=== PATIENT | male | born 2005 | race African-American/Black ===

== ENCOUNTER 2023-07-15 17:13 | Inpatient (IN) | payer OTHER ==
--- NOTE | 2023-07-15 17:25 | ED ---
Overdose HPI - General Stated Complaint: suicide attempt Time Seen by Provider: 07/15/23 17:15 Source: patient, police, EMS, RN notes reviewed - History of Present Illness Initial Comments: 18-year-old male with a history of depression apparently intensely overdosed on a combination of handfuls of Advil, Tylenol, aspirin and Bactrim. Is unclear whether this is over the past couple hours or not. Per paramedics there was several areas where the patient had vomited up what appeared to be multiple pill fragments and intact pills. He is reported to have been part of a suicide pact with a significant other who only took 1 or 2 pills for a headache supposedly. No reports of alcohol. Patient was responsive and maintained vitals per paramedics. Patient stated to me that he took these medications because he was tired of everything. MD Complaint: intentional overdose - Related Data Home Medications Medication Instructions Recorded Confirmed Cetirizine HCl [Zyrtec] 10 mg PO DIRECTED 07/15/23 07/15/23 Imipramine HCl [Tofranil] 50 mg PO DIRECTED 07/15/23 07/15/23 [place] Carbonate [[place] 300 mg PO DIRECTED 07/15/23 07/15/23 Carbonate ER] cloZAPine [Clozaril] 25 mg PO DIRECTED 07/15/23 07/15/23 guanFACINE HCL [Intuniv] 2 mg PO DIRECTED 07/15/23 07/15/23 Allergies Allergy/AdvReac Type Severity Reaction Status Date / Time acetaminophen [From Tylenol] AdvReac He becomes Verified 07/15/23 18:33 irritable & overly hyper, mean, and hurts himself amphetamine [From Adderall] AdvReac Irritable, Verified 07/15/23 18:30 overly hyper, mean, and hurts himself. codeine AdvReac Nausea & Verified 07/15/23 18:38 [From Tylenol-Codeine #3] Vomiting dextroamphetamine AdvReac Irritable, Verified 07/15/23 18:30 [From Adderall] overly hyper, mean, and hurts himself. dextromethorphan AdvReac He becomes Verified 07/15/23 18:38 [From Tylenol Cold Head irritable Congestion] & overly hyper, mean, and hurts himself diphenhydramine AdvReac He becomes Verified 07/15/23 18:38 [From Benadryl] irritable & overly hyper, mean, and hurts himself guaifenesin AdvReac He becomes Verified 07/15/23 18:38 [From Tylenol Cold Head irritable Congestion] & overly hyper, mean, and hurts himself lisdexamfetamine AdvReac rage Verified 07/15/23 18:38 [From Vyvanse] methylphenidate AdvReac Irritable, Verified 07/15/23 18:33 [From Concerta] overly hyper, mean, and hurts himself. olanzapine [From Zyprexa] AdvReac anger/irrit Verified 07/15/23 18:38 ability phenylephrine AdvReac He becomes Verified 07/15/23 18:38 [From Tylenol Cold Head irritable Congestion] & overly hyper, mean, and hurts himself risperidone AdvReac rage Verified 07/15/23 18:38 any otc cold treatment AdvReac He becomes Uncoded 07/15/23 18:38 irritable & overly hyper, mean, and hurts himself Review of Systems ROS Statement: Those systems with pertinent positive or pertinent negative responses have been documented in the HPI. ROS Other: All systems not noted in ROS Statement are negative. General Exam - General Exam Comments Initial Comments: Is a well-developed well-nourished awake alert but lethargic male with emesis on his lips. General appearance: alert, lethargic Head exam: Present: atraumatic, normocephalic, normal inspection Eye exam: Present: normal appearance, PERRL, EOMI. Absent: scleral icterus, conjunctival injection, periorbital swelling ENT exam: Present: normal exam, mucous membranes moist Neck exam: Present: normal inspection, full ROM, other (No stridor JVD or bruits). Absent: tenderness, meningismus, lymphadenopathy Respiratory exam: Present: normal lung sounds bilaterally. Absent: respiratory distress, wheezes, rales, rhonchi, stridor Cardiovascular Exam: Present: regular rate, normal rhythm, normal heart sounds. Absent: systolic murmur, diastolic murmur, rubs, gallop, clicks GI/Abdominal exam: Present: soft, normal bowel sounds. Absent: distended, tenderness, guarding, rebound, rigid, bruit, pulsatile mass Extremities exam: Present: normal inspection, full ROM, normal capillary refill. Absent: tenderness, pedal edema, joint swelling, calf tenderness Back exam: Present: normal inspection Neurological exam: Present: alert, oriented X3, CN II-XII intact Psychiatric exam: Present: normal affect, normal mood Skin exam: Present: warm, dry, intact, normal color. Absent: rash Course Vital Signs 07/15/23 17:15 Temperature 97.5 F L Medical Decision Making - Medical Decision Making I did reevaluate the patient on multiple occasions he did remain lethargic but arousable. He has vomited several times. He did demonstrate evidence of a elevated acetaminophen level of 325.8 he also demonstrated an elevated lactic acid of 5.5. No infectious processes identified this is likely due to metabolic and fluid status. I did discuss case with Jorge Wesley and Dr. Urias from ICU. Patient also had a consult to poison control with recommendations that were followed. Patient will be admitted for evaluation and treatment of Tylenol overdose and depression with suicidal attempt. He was placed on IV fluids antinausea medication close monitoring of vitals. Patient will is also on s uicide precautions. Was pt. sent in by a medical professional or institution (AZUCENA Oleary, PROFESSOR OF BI[employer]HEMISTRY, urgent care, hospital, or snf...) When possible be specific @ -No Did you speak to anyone other than the patient for history (EMS, parent, family, police, friend...)? What history was obtained from this source @ -Paramedics upon arrival Did you review nursing and triage notes (agree or disagree)? Why? @ -I reviewed and agree with nursing and triage notes Were old charts reviewed (outside hosp., previous admission, EMS record, old EKG, old radiological studies, urgent care reports/EKG's, snf records)? Report findings @ -No old charts were reviewed Differential Diagnosis (chest pain, altered mental status, abdominal pain women, abdominal pain men, vaginal bleeding, weakness, fever, dyspnea, syncope, headache, dizziness, GI bleed, back pain, seizure, CVA, palpatations, mental health, musculoskeletal)? @ -Polydrug overdose, suicidal attempt, depression EKG interpreted by me (3pts min.). @ -As above EKG interpreted by me sinus bradycardia with sinus arrhythmia rate 51 MN interval 138 QRS duration 102 QT/QTc 389/366 X-rays interpreted by me (1pt min.). @ -Chest x-ray KUB x-ray interpreted by me no acute process identified CT interpreted by me (1pt min.). @ -None done U/S interpreted by me (1pt. min.). @ -None done What testing was considered but not performed or refused? (CT, X-rays, U/S, labs)? Why? @ -None What meds were considered but not given or refused? Why? @ -None Did you discuss the management of the patient with other professionals (professionals i.e. Dr., PA, PROFESSOR OF BIOCHEMISTRY, lab, RT, psych nurse, social director, electrical line mechanic, teacher, command center officer, case liner)? Give summary @ -Jorge Lima and Dr. Kumar Was smoking cessation discussed for >3mins.? @ -No Was critical care preformed (if so, how long)? @ -45 minutes Were there social determinants of health that impacted care today? How? (Homelessness, low income, unemployed, alcoholism, drug addiction, transportation, low edu. Level, literacy, decrease access to med. care, care home, rehab)? @ -No Was there de-escalation of care discussed even if they declined (Discuss DNR or withdrawal of care, Hospice)? DNR status @ -No What co-morbidities impacted this encounter? (DM, HTN, Smoking, COPD, CAD, Cancer, CVA, ARF, Chemo, Hep., AIDS, mental health diagnosis, sleep apnea, morbid obesity)? @ -History of depression Was patient admitted / discharged? Hospital course, mention meds given and route, prescriptions, significant lab abnormalities, going to OR and other pertinent info. @ -Hospital course patient was admitted for inpatient evaluation and treatment of acetaminophen overdose dehydration vomiting and lactic acidosis IV noninfectious etiology Undiagnosed new problem with uncertain prognosis? @ -Tylenol overdose Drug Therapy requiring intensive monitoring for toxicity (Heparin, Nitro, Insulin, Cardizem)? @ -Yes, IV acetaminophen antidote Were any procedures done? @ -No Diagnosis/symptom? @ -Acute acetaminophen overdose, lactic acidosis, suicide attempt, major depression, dehydration Acute, or Chronic, or Acute on Chronic? @ -Acute Uncomplicated (without systemic symptoms) or Complicated (systemic symptoms)? @ -Default Side effects of treatment? @ -Potential Exacerbation, Progression, or Severe Exacerbation? @ -No Poses a threat to life or bodily function? How? (Chest pain, [place], [place], pneumonia, PE, COPD, DKA, ARF, appy, cholecystitis, CVA, Diverticulitis, Homicidal, Suicidal, threat to staff... and all critical care pts) @ -Potential, Tylenol overdose - Lab Data Result diagrams: 07/15/23 17:31 07/15/23 17:31 Lab Results 07/15/23 07/15/23 07/15/23 Range/Units 17:31 17:31 17:31 WBC 5.5 (4.0-11.0) k/uL RBC 5.16 (4.30-5.90) m/uL Hgb 14.3 (13.0-17.5) gm/dL Hct 45.0 (39.0-53.0) % MCV 87.2 (80.0-100.0) fL MCH 27.8 (25.0-35.0) pg MCHC 31.9 (31.0-37.0) g/dL RDW 15.8 H (11.5-15.5) % Plt Count 199 (150-450) k/uL MPV 9.2 Neutrophils % 65 % Lymphocytes % 24 % Monocytes % 6 % Eosinophils % 2 % Basophils % 1 % Neutrophils # 3.6 (1.3-7.7) k/uL Lymphocytes # 1.3 (1.0-4.8) k/uL Monocytes # 0.4 (0-1.0) k/uL Eosinophils # 0.1 (0-0.7) k/uL Basophils # 0.0 (0-0.2) k/uL Sodium 141 (137-145) mmol/L Potassium 3.8 (3.5-5.1) mmol/L Chloride 110 H (98-107) mmol/L Carbon Dioxide 19 L (22-30) mmol/L Anion Gap 12 mmol/L BUN 8 L (9-20) mg/dL Creatinine 0.83 (0.66-1.25) mg/dL Est GFR (CKD-EPI)AfAm >90 (>60 ml/min/1.73 sqM) Est GFR (CKD-EPI)NonAf >90 (>60 ml/min/1.73 sqM) Glucose 149 H (74-99) mg/dL Plasma Lactic Acid Max 5.5 H* (0.7-2.0) mmol/L Calcium 9.1 (8.4-10.2) mg/dL Total Bilirubin 0.6 (0.2-1.3) mg/dL AST 23 (17-59) U/L ALT 18 (4-49) U/L Alkaline Phosphatase 64 (38-126) U/L Creatine Kinase 169 (55-170) U/L Total Protein 6.1 L (6.3-8.2) g/dL Albumin 3.7 (3.5-5.0) g/dL Lipase 164 (23-300) U/L Salicylates <1.0 mg/dL Acetaminophen 325.8 H* ug/mL Serum Alcohol <10 mg/dL Critical Care Time Critical Care Time: Yes Total Critical Care Time: 45 Disposition Clinical Impression: Acetaminophen overdose, Suicide attempt by multiple drug overdose, Lactic acidosis, Major depression Disposition: ADMITTED IP TO THIS [facility] Condition: Serious Referrals: None,Stated [Primary Care Provider] - 1-2 days Time of Disposition: 20:50 Decision Date: 07/15/23 Decision Time: 20:50
[2023-07-15 17:58] LABS: Basophils % (A) 1 %; Eosinophils # (A) 0.1 k/uL (0-0.7); Eosinophils % (A) 2 %; HGB 14.3 gm/dL (13.0-17.5); Lymphocytes # (A) 1.3 k/uL (1.0-4.8); Lymphocytes % (A) 24 %; MCH 27.8 pg (25.0-35.0); MCHC 31.9 g/dL (31.0-37.0); MCV 87.2 fL (80.0-100.0); Mean Platelet Volume 9.2; Monocytes # (A) 0.4 k/uL (0-1.0); Monocytes % (A) 6 %; Neutrophils # (A) 3.6 k/uL (1.3-7.7); Neutrophils % (A) 65 %; Platelet Count 199 k/uL (150-450); RBC 5.16 m/uL (4.30-5.90); RDW 15.8 % (11.5-15.5); WBC 5.5 k/uL (4.0-11.0)
[2023-07-15 18:13] LABS: ALT 18 U/L (4-49); AST 23 U/L (17-59); African American GFR (CKD) >90 (>60 ml/min/1.73 sqM); Albumin 3.7 g/dL (3.5-5.0); Alcohol <10 mg/dL; Alkaline Phosphatase 64 U/L (38-126); Anion Gap 12 mmol/L; Blood Urea Nitrogen 8 mg/dL (9-20); Calcium 9.1 mg/dL (8.4-10.2); Carbon Dioxide 19 mmol/L (22-30); Chloride 110 mmol/L (98-107); Creatine Kinase 169 U/L (55-170); Glucose 149 mg/dL (74-99); Lipase 164 U/L (23-300); Non-African American GFR(CKD) >90 (>60 ml/min/1.73 sqM); Potassium 3.8 mmol/L (3.5-5.1); Salicylate <1.0 mg/dL; Sodium 141 mmol/L (137-145); Total Bilirubin 0.6 mg/dL (0.2-1.3); Total Protein 6.1 g/dL (6.3-8.2)
[2023-07-15 18:38] LABS: Acetaminophen 325.8 ug/mL
[2023-07-15] MEDS ORDERED: diphenhydrAMINE 50 MG/ML 1 ML VIAL IVP PRN (18:44)
[2023-07-15] MEDS: SODIUM CHLORIDE 0.9% 1,000 ML IV STA ×2 (19:02→20:40)
--- NOTE | 2023-07-15 19:11 | XR ---
EXAMINATION TYPE: XR KUB portable DATE OF EXAM: 07/15/2023 6:06 PM CLINICAL INDICATION:Male, 18 years old with history of Drug overdose with vomiting; [facility] COMPARISON: None. TECHNIQUE: Supine radiographic view/s of the abdomen/pelvis obtained. FINDINGS: The bowel gas pattern is nonspecific, likely nonobstructive without dilated loops of small or large b owel. Small amount fecal material and gas are demonstrated throughout the colon and rectum. No gross evidence of organomegaly. No evidence of pneumoperitoneum in the limitations of supine technique. No pathologic calcifications are seen. Osseous structures appear grossly intact. IMPRESSION: Nonobstructive bowel gas pattern.
[2023-07-15] MEDS: SODIUM CHLORIDE 0.9% 500 ML 500 ML IV STA (19:31)
--- NOTE | 2023-07-15 19:34 | XR ---
EXAM: XR chest 1V portable CLINICAL INDICATION:Male, 18 years old with history of Drug overdose with vomiting; [facility] COMPARISON: None. TECHNIQUE: Chest single view. FINDINGS: Lines/tubes/devices: EKG leads overlie the chest. No indwelling lines are seen. Cardiomediastinum: Cardiac silhouette appears normal in size. Unremarkable mediastinal silhouette. Vasculature: No increased pulmonary vasculature. Lungs/pleura: No consolidation, sizeable effusion, or visible pneumothorax. Bones/soft tissues: Bony thorax appears grossly intact as seen. Regional soft tissues appear unremarkable. IMPRESSION: No acute cardiopulmonary findings.
[2023-07-15] MEDS ORDERED: ACETYLCYSTEINE IV 200 MG/ML 30 ML VIAL IV ONE (19:49)
[2023-07-15] MEDS: ACETYLCYSTEINE IV ONE ×3 (19:49→22:06)
[2023-07-15] MEDS: DEXTROSE 5% IV ONE ×3 (19:49→22:06)
[2023-07-15] MEDS ORDERED: DEXTROSE 5% IN WATER 250 ML BAG ONE (19:49)
[2023-07-15] MEDS: WATER IV ONE ×3 (19:49→22:06)
[2023-07-15 20:52] LABS: Amphetamine Screen,Urine Not Detected (NotDetected); Barbiturate Screen,Urine Not Detected (NotDetected); Benzodiazepines Screen,Urine Not Detected (NotDetected); Cocaine Screen,Urine Not Detected (NotDetected); Methadone Screen, Urine Not Detected (NotDetected); Opiate Screen,Urine Not Detected (NotDetected); Oxycodone Screen, Urine Not Detected (NotDetected); Phencyclidine Screen,Urine Not Detected (NotDetected); Tricyclic Antidepressant,Urine Not Detected (NotDetected); Urn Cannabinoid Scrn Detected (NotDetected)
[2023-07-15] MEDS ORDERED: NALOXONE 0.4 MG/ML 1 ML VIAL IV PRN (20:52)
[2023-07-15 20:54] LABS: Salicylate <1.0 mg/dL
[2023-07-15 21:09] LABS: Acetaminophen 241.3 ug/mL
[2023-07-15] MEDS: ONDANSETRON 4 MG/2 ML VIAL IVP STA (22:01)
[2023-07-15 23:05] LABS: Basophils % (A) 0 %; Eosinophils # (A) 0.1 k/uL (0-0.7); Eosinophils % (A) 1 %; HCT 46.6 % (39.0-53.0); HGB 14.6 gm/dL (13.0-17.5); Lymphocytes # (A) 0.9 k/uL (1.0-4.8); Lymphocytes % (A) 10 %; MCH 27.4 pg (25.0-35.0); MCHC 31.3 g/dL (31.0-37.0); MCV 87.5 fL (80.0-100.0); Mean Platelet Volume 9.1; Monocytes # (A) 0.5 k/uL (0-1.0); Monocytes % (A) 5 %; Neutrophils % (A) 84 %; Platelet Count 203 k/uL (150-450); RBC 5.33 m/uL (4.30-5.90); RDW 15.7 % (11.5-15.5); WBC 9.5 k/uL (4.0-11.0)
[2023-07-15] MEDS ORDERED: WATER IV ONE (23:44)
[2023-07-15] MEDS ORDERED: ACETYLCYSTEINE IV ONE (23:44)
[2023-07-15] MEDS ORDERED: DEXTROSE 5% IV ONE (23:44)
[2023-07-16 00:51] LABS: Potassium 4.4 mmol/L (3.5-5.1)
[2023-07-16 02:57] LABS: ALT 17 U/L (4-49); African American GFR (CKD) >90 (>60 ml/min/1.73 sqM); Albumin 3.4 g/dL (3.5-5.0); Anion Gap 7 mmol/L; Blood Urea Nitrogen 6 mg/dL (9-20); Calcium 8.8 mg/dL (8.4-10.2); Carbon Dioxide 21 mmol/L (22-30); Chloride 112 mmol/L (98-107); Glucose 101 mg/dL (74-99); Non-African American GFR(CKD) >90 (>60 ml/min/1.73 sqM); Sodium 140 mmol/L (137-145); Total Bilirubin 1.1 mg/dL (0.2-1.3)
[2023-07-16 03:16] LABS: AST 28 U/L (17-59); Alkaline Phosphatase <20 U/L (38-126); Potassium 5.4 mmol/L (3.5-5.1)
[2023-07-16 07:42] LABS: ALT 15 U/L (4-49); AST 18 U/L (17-59); Acetaminophen 39.7 ug/mL; African American GFR (CKD) >90 (>60 ml/min/1.73 sqM); Albumin 3.2 g/dL (3.5-5.0); Alkaline Phosphatase 27 U/L (38-126); Anion Gap 7 mmol/L; Blood Urea Nitrogen 6 mg/dL (9-20); Carbon Dioxide 22 mmol/L (22-30); Chloride 112 mmol/L (98-107); Glucose 91 mg/dL (74-99); Non-African American GFR(CKD) >90 (>60 ml/min/1.73 sqM); Potassium 3.8 mmol/L (3.5-5.1); Sodium 141 mmol/L (137-145); Total Bilirubin 0.8 mg/dL (0.2-1.3); Total Protein 5.5 g/dL (6.3-8.2)
[2023-07-16 07:50] LABS: NT-Pro-B-Type Natriuretic Pept 300 pg/mL
[2023-07-16] MEDS ORDERED: ONDANSETRON 4 MG/2 ML VIAL IVP PRN (08:33)
[2023-07-16] MEDS: SODIUM CHLORIDE 0.9% 1,000 ML IV SCH (10:34)
--- NOTE | 2023-07-16 11:36 | P.HPIM ---
History of Present Illness H&P Date: 07/16/23 Chief Complaint: Suicide attempt * 18-year-old patient with past medical history significant for depression, who presents to the emergency department with suicide attempt, patient take a combination of Tylenol, aspirin, Bactrim and Advil. Time of ingestion unknown. Per paramedics patient had several spots where patient had vomited and they were multiple pill fragments and intact pills noted. At the time of presentation when seen by paramedics patient has been responsive and hemodynamically stable. Patient spoke with the hospitality manager mentioning that he took these pills but he was tired of everything and had an intentional overdose. Patient presented to [facility] and was evaluated in emergency department on multiple occasions patient was noted to be lethargic however arousable. Patient had multiple episodes of vomiting. Was noted to have elevated acetaminophen levels of 325.8. Lactic acid of 5.5 was noted at the time of presentation. No infectious etiology was noted. Medical ICU team was contacted and poison control was consulted. Patient will be treated for Tylenol overdose as well as depression and suicide attempt. Patient was started on IV fluids. Was placed in suicide precautions. Liver profile acetaminophen levels ordered. * Poison control was called and patient was started on protocol single bag dosing. Patient was given N-acetylcysteine pharmacy following up, follow-up acetaminophen levels and liver profile ordered * Further workup in ER included a chest x-ray that was within normal limit * EKG obtained showed sinus rhythm bradycardia noted QTc 367 * Workup include WBC 9.5 hemoglobin 14.6 platelet count of 203. Serum chemistry showed sodium 143 potassium 4.4 chloride 113, dioxide 19 BUN 8 creatinine 0.83, follow-up lactate 0.9. REVIEW OF SYSTEMS: Depression, suicidal ideation CONSTITUTIONAL: No fever, no malaise, no fatigue. HEENT: No recent visual problems or hearing problems. Denied any sore throat. CARDIOVASCULAR: No chest pain, orthopnea, PND, no palpitations, no syncope. PULMONARY: No shortness of breath, no cough, no hemoptysis. GASTROINTESTINAL: No diarrhea, no nausea, no vomiting, no abdominal pain. NEUROLOGICAL: No headaches, no weakness, no numbness. HEMATOLOGICAL: Denies any bleeding or petechiae. GENITOURINARY: Denies any burning micturition, frequency, or urgency. MUSCULOSKELETAL/RHEUMATOLOGICAL: Denies any joint pain, swelling, or any muscle pain. ENDOCRINE: Denies any polyuria or polydipsia. PHYSICAL EXAMINATION: GENERAL: The patient is alert and oriented x3, HEENT: Pupils are round and equally reacting to light. EOMI. CARDIOVASCULAR: S1 and S2 present. No murmurs, rubs, or gallops. PULMONARY: Chest is clear to auscultation, no wheezing or crackles. ABDOMEN: Soft, nontender, nondistended, normoactive bowel sounds. No palpable organomegaly. MUSCULOSKELETAL: No joint swelling or deformity. EXTREMITIES: No cyanosis, clubbing, or pedal edema. NEUROLOGICAL: Gross neurological examination did not reveal any focal deficits. SKIN: No rashes. Assessment and plan * Suicide attempt with overdose on acetaminophen * Acetaminophen toxicity * History of depression * Lactate acidosis noninfectious * Consultation obtained from medical ICU, patient started on single bag of acetylcysteine protocol per poison control * Follow-up on acetaminophen levels, follow-up on liver profile, follow-up on CBC * In regards to depression continue to maintain maximum safety precautions psychiatry consulted continue to maintain one-to-one sitter * In regards to lactic acidosis follow-up lactate levels within normal limits * CODE STATUS full code Past Medical History Additional Past Medical History / Comment(s): depression Medications and Allergies Home Medications Medication Instructions Recorded Confirmed Type Cetirizine HCl [Zyrtec] 10 mg PO DIRECTED 07/15/23 07/15/23 History Imipramine HCl [Tofranil] 50 mg PO DIRECTED 07/15/23 07/15/23 History [place] Carbonate [[place] 300 mg PO DIRECTED 07/15/23 07/15/23 History Carbonate ER] cloZAPine [Clozaril] 25 mg PO DIRECTED 07/15/23 07/15/23 History guanFACINE HCL [Intuniv] 2 mg PO DIRECTED 07/15/23 07/15/23 History Allergies Allergy/AdvReac Type Severity Reaction Status Date / Time acetaminophen [From Tylenol] AdvReac He becomes Verified 07/15/23 18:33 irritable & overly hyper, mean, and hurts himself amphetamine [From Adderall] AdvReac Irritable, Verified 07/15/23 18:30 overly hyper, mean, and hurts himself. codeine AdvReac Nausea & Verified 07/15/23 18:38 [From Tylenol-Codeine #3] Vomiting dextroamphetamine AdvReac Irritable, Verified 07/15/23 18:30 [From Adderall] overly hyper, mean, and hurts himself. dextromethorphan AdvReac He becomes Verified 07/15/23 18:38 [From Tylenol Cold Head irritable Congestion] & overly hyper, mean, and hurts himself diphenhydramine AdvReac He becomes Verified 07/15/23 18:38 [From Benadryl] irritable & overly hyper, mean, and hurts himself guaifenesin AdvReac He becomes Verified 07/15/23 18:38 [From Tylenol Cold Head irritable Congestion] & overly hyper, mean, and hurts himself lisdexamfetamine AdvReac rage Verified 07/15/23 18:38 [From Vyvanse] methylphenidate AdvReac Irritable, Verified 07/15/23 18:33 [From Concerta] overly hyper, mean, and hurts himself. olanzapine [From Zyprexa] AdvReac anger/irrit Verified 07/15/23 18:38 ability phenylephrine AdvReac He becomes Verified 07/15/23 18:38 [From Tylenol Cold Head irritable Congestion] & overly hyper, mean, and hurts himself risperidone AdvReac rage Verified 07/15/23 18:38 any otc cold treatment AdvReac He becomes Uncoded 07/15/23 18:38 irritable & overly hyper, mean, and hurts himself Physical Exam Vitals: Vital Signs Temp Pulse Resp BP Pulse Ox 07/16/23 07:29 98.3 F 44 L 18 118/68 100 07/16/23 06:00 50 L 18 118/65 99 07/16/23 05:00 46 L 18 108/67 99 07/16/23 04:00 46 L 18 108/60 99 07/16/23 03:00 54 L 18 102/68 99 07/16/23 01:00 56 L 18 103/65 97 07/15/23 22:00 84 18 107/67 100 07/15/23 21:00 68 18 96/50 100 07/15/23 20:30 89 12 113/74 97 07/15/23 20:00 77 20 103/90 99 07/15/23 19:30 60 14 98/62 99 07/15/23 17:15 97.5 F L Intake and Output 07/15/23 07/16/23 07/16/23 22:59 06:59 14:59 Output Total 400 Balance -400 Output: Urine 400 Other: Weight 95.254 kg Results CBC & Chem 7: 07/15/23 22:46 07/16/23 06:59 Labs: Abnormal Lab Results - Last 24 Hours (Table) 07/15/23 07/15/23 07/15/23 Range/Units 17:31 17:31 17:31 RDW 15.8 H (11.5-15.5) % Neutrophils # (1.3-7.7) k/uL Lymphocytes # (1.0-4.8) k/uL Potassium (3.5-5.1) mmol/L Chloride 110 H (98-107) mmol/L Carbon Dioxide 19 L (22-30) mmol/L BUN 8 L (9-20) mg/dL Creatinine (0.66-1.25) mg/dL Glucose 149 H (74-99) mg/dL Plasma Lactic Acid Max 5.5 H* (0.7-2.0) mmol/L Alkaline Phosphatase (38-126) U/L Total Protein 6.1 L (6.3-8.2) g/dL Albumin (3.5-5.0) g/dL Acetaminophen 325.8 H* ug/mL U Marijuana (THC) Screen (NotDetected) 07/15/23 07/15/23 07/15/23 Range/Units 17:31 20:03 20:03 RDW (11.5-15.5) % Neutrophils # (1.3-7.7) k/uL Lymphocytes # (1.0-4.8) k/uL Potassium (3.5-5.1) mmol/L Chloride 113 H (98-107) mmol/L Carbon Dioxide 19 L (22-30) mmol/L BUN (9-20) mg/dL Creatinine (0.66-1.25) mg/dL Glucose (74-99) mg/dL Plasma Lactic Acid Max (0.7-2.0) mmol/L Alkaline Phosphatase (38-126) U/L Total Protein (6.3-8.2) g/dL Albumin (3.5-5.0) g/dL Acetaminophen 241.3 H* ug/mL U Marijuana (THC) Screen Detected H (NotDetected) 07/15/23 07/15/23 07/16/23 Range/Units 21:24 22:46 02:25 RDW 15.7 H (11.5-15.5) % Neutrophils # 8.0 H (1.3-7.7) k/uL Lymphocytes # 0.9 L (1.0-4.8) k/uL Potassium 5.4 H (3.5-5.1) mmol/L Chloride 112 H (98-107) mmol/L Carbon Dioxide 21 L (22-30) mmol/L BUN 6 L (9-20) mg/dL Creatinine 0.60 L (0.66-1.25) mg/dL Glucose 101 H (74-99) mg/dL Plasma Lactic Acid Max 2.5 H* (0.7-2.0) mmol/L Alkaline Phosphatase <20 L (38-126) U/L Total Protein 6.0 L (6.3-8.2) g/dL Albumin 3.4 L (3.5-5.0) g/dL Acetaminophen ug/mL U Marijuana (THC) Screen (NotDetected) 07/16/23 Range/Units 06:59 RDW (11.5-15.5) % Neutrophils # (1.3-7.7) k/uL Lymphocytes # (1.0-4.8) k/uL Potassium (3.5-5.1) mmol/L Chloride 112 H (98-107) mmol/L Carbon Dioxide (22-30) mmol/L BUN 6 L (9-20) mg/dL Creatinine (0.66-1.25) mg/dL Glucose (74-99) mg/dL Plasma Lactic Acid Max (0.7-2.0) mmol/L Alkaline Phosphatase 27 L (38-126) U/L Total Protein 5.5 L (6.3-8.2) g/dL Albumin 3.2 L (3.5-5.0) g/dL Acetaminophen ug/mL U Marijuana (THC) Screen (NotDetected)
--- NOTE | 2023-07-16 16:24 | P.CNPUL ---
History of Present Illness Consult date: 07/16/23 Requesting physician: Noe Cooper Reason for consult: other Chief complaint: Suicide attempt, Tylenol overdose History of present illness: This is a 18-year-old male known history of depression, previous history of suicidal attempts, patient took yesterday a combination of pills including Tyle nol, aspirin, Bactrim, and Advil. Time of ingestion is unknown, but apparently shortly after he took those pills, patient vomited, and according to paramedics there was multiple pill fragments noted as he was vomiting. Patient was brought into the ER, and I was notified about this patient by Dr. Mitesh Arrington, discussed the case over the phone with Dr. Arrington, and I recommended that the patient starts on acetylcysteine as per protocol/IV protocol. And I also recommended poison control to be notified and address any other recommendations. Patient was placed on the acetylcysteine protocol intravenously, labs came back showing significantly elevated toxic level of acetaminophen 325, follow-up level was 241 and a level this morning was down to 39.7 patient is on blood protocol and he will continue to receive acetylcysteine for the next 16 hours liver enzymes were noted to be normal renal profile was normal further drug screening on this patient showed a level of salicylate less than 1.0 he tested negative for alcohol, and he was positive for marijuana. At any rate I saw this patient in the ER this morning, and he seems to be doing well. Reviewed all his labs reviewed the acetylcysteine protocol, and the patient is on the protocol as it should be. Hence I am recommending that the patient should go to the medical floor with psychiatric consultation and sitter at bedside, suicidal precautions, continue the acetylcysteine infusion for the next 16 hours, and the patient should be seen by psychiatry on consultation and he may need to be admitted to psychiatry. Review of Systems REVIEW OF SYSTEMS: CONSTITUTIONAL: Negative. EYES: Negative. ENT: Negative. CARDIAC: Negative. PULMONARY: No cough no wheezing no shortness GI: Negative. GENITOURINARY: Negative. MUSCULOSKELETAL: Negative. SKIN: Negative. NEUROPSYCH: History of depression and previous suicidal attempt ENDOCRINE: Negative. HEMATOLOGIC: Negative. Past Medical History Additional Past Medical History / Comment(s): depression History of Any Multi-Drug Resistant Organisms: None Reported Past Surgical History: Orthopedic Surgery Additional Past Surgical History / Comment(s): Bilateral ankle fractures Past Anesthesia/Blood Transfusion Reactions: No Reported Reaction Past Psychological History: Depression Smoking Status: Current every day smoker, Vaper - Past Family History Mother Family Medical History: Unable to Obtain Medications and Allergies Home Medications Medication Instructions Recorded Confirmed Type Cetirizine HCl [Zyrtec] 10 mg PO DIRECTED 07/15/23 07/15/23 History Imipramine HCl [Tofranil] 50 mg PO DIRECTED 07/15/23 07/15/23 History [place] Carbonate [[place] 300 mg PO DIRECTED 07/15/23 07/15/23 History Carbonate ER] cloZAPine [Clozaril] 25 mg PO DIRECTED 07/15/23 07/15/23 History guanFACINE HCL [Intuniv] 2 mg PO DIRECTED 07/15/23 07/15/23 History Allergies Allergy/AdvReac Type Severity Reaction Status Date / Time acetaminophen [From Tylenol] AdvReac He becomes Verified 07/15/23 18:33 irritable & overly hyper, mean, and hurts himself amphetamine [From Adderall] AdvReac Irritable, Verified 07/15/23 18:30 overly hyper, mean, and hurts himself. codeine AdvReac Nausea & Verified 07/15/23 18:38 [From Tylenol-Codeine #3] Vomiting dextroamphetamine AdvReac Irritable, Verified 07/15/23 18:30 [From Adderall] overly hyper, mean, and hurts himself. dextromethorphan AdvReac He becomes Verified 07/15/23 18:38 [From Tylenol Cold Head irritable Congestion] & overly hyper, mean, and hurts himself diphenhydramine AdvReac He becomes Verified 07/15/23 18:38 [From Benadryl] irritable & overly hyper, mean, and hurts himself guaifenesin AdvReac He becomes Verified 07/15/23 18:38 [From Tylenol Cold Head irritable Congestion] & overly hyper, mean, and hurts himself lisdexamfetamine AdvReac rage Verified 07/15/23 18:38 [From Vyvanse] methylphenidate AdvReac Irritable, Verified 07/15/23 18:33 [From Concerta] overly hyper, mean, and hurts himself. olanzapine [From Zyprexa] AdvReac anger/irrit Verified 07/15/23 18:38 ability phenylephrine AdvReac He becomes Verified 07/15/23 18:38 [From Tylenol Cold Head irritable Congestion] & overly hyper, mean, and hurts himself risperidone AdvReac rage Verified 07/15/23 18:38 any otc cold treatment AdvReac He becomes Uncoded 07/15/23 18:38 irritable & overly hyper, mean, and hurts himself Physical Exam Vitals: Vital Signs Temp Pulse Resp BP Pulse Ox 07/16/23 15:00 57 L 18 127/58 97 07/16/23 13:00 61 18 121/90 97 07/16/23 12:00 60 18 96 07/16/23 11:00 65 18 118/96 96 07/16/23 10:00 45 L 18 120/71 97 07/16/23 09:00 50 L 18 124/73 98 07/16/23 08:00 48 L 18 109/61 98 07/16/23 07:29 98.3 F 44 L 18 118/68 100 07/16/23 06:00 50 L 18 118/65 99 07/16/23 05:00 46 L 18 108/67 99 07/16/23 04:00 46 L 18 108/60 99 07/16/23 03:00 54 L 18 102/68 99 07/16/23 01:00 56 L 18 103/65 97 07/15/23 22:00 84 18 107/67 100 07/15/23 21:00 68 18 96/50 100 07/15/23 20:30 89 12 113/74 97 07/15/23 20:00 77 20 103/90 99 07/15/23 19:30 60 14 98/62 99 07/15/23 17:15 97.5 F L GENERAL: Reveals 18-year-old male in no distress on room air HEENT: PERRLA, EOMI, nonicteric, no neck masses no JVD no stridor CARDIOVASCULAR: Normal S1-S2, no S3 gallop PULMONARY: Clear throughout no crackles rhonchi or wheezes ABDOMEN: Soft nontender no megaly no rebound no megaly ly. MUSCULOSKELETAL: No deformities and no limitation range of motion EXTREMITIES: No clubbing edema or cyanosis NEUROLOGICAL: Alert oriented x 3 no gross focal deficit Psychiatric: Normal mood affect normal mental status examination Skin: No rash Results - Laboratory Findings CBC and BMP: 07/15/23 22:46 07/16/23 06:59 Abnormal lab findings: Abnormal Labs 07/15/23 07/15/23 07/15/23 17:31 17:31 17:31 RDW 15.8 H Neutrophils # Lymphocytes # Potassium Chloride 110 H Carbon Dioxide 19 L BUN 8 L Creatinine Glucose 149 H Plasma Lactic Acid Max 5.5 H* Alkaline Phosphatase Total Protein 6.1 L Albumin Acetaminophen 325.8 H* U Marijuana (THC) Screen 07/15/23 07/15/23 07/15/23 17:31 20:03 20:03 RDW Neutrophils # Lymphocytes # Potassium Chloride 113 H Carbon Dioxide 19 L BUN Creatinine Glucose Plasma Lactic Acid Max Alkaline Phosphatase Total Protein Albumin Acetaminophen 241.3 H* U Marijuana (THC) Screen Detected H 07/15/23 07/15/23 07/16/23 21:24 22:46 02:25 RDW 15.7 H Neutrophils # 8.0 H Lymphocytes # 0.9 L Potassium 5.4 H Chloride 112 H Carbon Dioxide 21 L BUN 6 L Creatinine 0.60 L Glucose 101 H Plasma Lactic Acid Max 2.5 H* Alkaline Phosphatase <20 L Total Protein 6.0 L Albumin 3.4 L Acetaminophen U Marijuana (THC) Screen 07/16/23 06:59 RDW Neutrophils # Lymphocytes # Potassium Chloride 112 H Carbon Dioxide BUN 6 L Creatinine Glucose Plasma Lactic Acid Max Alkaline Phosphatase 27 L Total Protein 5.5 L Albumin 3.2 L Acetaminophen U Marijuana (THC) Screen - Diagnostic Findings Chest x-ray: image reviewed (Chest x-ray showed no evidence of active disease) Assessment and Plan Assessment: Impression: Acute acetaminophen toxicity Suicidal attempt with overdose on acetaminophen History of depression Recommendation: Patient could be sent from the ER to medical surgical floor Continue acetylcysteine infusion as per protocol Repeat labs in the next 16 hours including acetaminophen level and complete metabolic profile Psychiatry to see the patient on consultation Suicidal precautions Sitter at bedside at all times Will continue to follow Time with Patient: Greater than 30
[2023-07-16 19:05] LABS: ALT 14 U/L (4-49); AST 16 U/L (17-59); Acetaminophen <10.0 ug/mL; African American GFR (CKD) >90 (>60 ml/min/1.73 sqM); Albumin 3.2 g/dL (3.5-5.0); Alkaline Phosphatase 38 U/L (38-126); Anion Gap 4 mmol/L; Blood Urea Nitrogen 6 mg/dL (9-20); Calcium 8.9 mg/dL (8.4-10.2); Carbon Dioxide 26 mmol/L (22-30); Chloride 111 mmol/L (98-107); Glucose 66 mg/dL (74-99); Non-African American GFR(CKD) >90 (>60 ml/min/1.73 sqM); Potassium 3.7 mmol/L (3.5-5.1); Sodium 141 mmol/L (137-145); Total Bilirubin 0.4 mg/dL (0.2-1.3); Total Protein 5.4 g/dL (6.3-8.2)
[2023-07-16 19:12] LABS: NT-Pro-B-Type Natriuretic Pept 138 pg/mL
[2023-07-16 19:29] LABS: INR 1.4 (<1.2); Prothrombin Time 14.2 sec (10.0-12.5)
[2023-07-16 19:51] LABS: ALT 14 U/L (4-49); AST 17 U/L (17-59)
[2023-07-16 23:40] VITALS: RESP 16
[2023-07-17 09:23] LABS: Basophils % (A) 0 %; Eosinophils # (A) 0.1 k/uL (0-0.7); Eosinophils % (A) 2 %; HCT 43.4 % (39.0-53.0); HGB 13.7 gm/dL (13.0-17.5); Lymphocytes % (A) 37 %; MCH 27.5 pg (25.0-35.0); MCHC 31.7 g/dL (31.0-37.0); MCV 86.6 fL (80.0-100.0); Mean Platelet Volume 9.1; Monocytes # (A) 0.5 k/uL (0-1.0); Monocytes % (A) 9 %; Neutrophils # (A) 2.7 k/uL (1.3-7.7); Neutrophils % (A) 50 %; Platelet Count 160 k/uL (150-450); RBC 5.01 m/uL (4.30-5.90); RDW 15.9 % (11.5-15.5); WBC 5.4 k/uL (4.0-11.0)
[2023-07-17] MEDS: ENOXAPARIN 40 MG/0.4 ML SYRINGE SQ SCH (09:27)
[2023-07-17 09:48] LABS: ALT 16 U/L (4-49); AST 21 U/L (17-59); African American GFR (CKD) >90 (>60 ml/min/1.73 sqM); Alkaline Phosphatase 44 U/L (38-126); Anion Gap -3 mmol/L; Blood Urea Nitrogen 4 mg/dL (9-20); Calcium 9.1 mg/dL (8.4-10.2); Carbon Dioxide 31 mmol/L (22-30); Chloride 113 mmol/L (98-107); Glucose 89 mg/dL (74-99); Non-African American GFR(CKD) >90 (>60 ml/min/1.73 sqM); Potassium 4.2 mmol/L (3.5-5.1); Sodium 141 mmol/L (137-145); Total Bilirubin 0.9 mg/dL (0.2-1.3); Total Protein 5.2 g/dL (6.3-8.2)
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
[2023-07-17 15:53] VITALS: BP 105/57; PULSE 51; TEMP 97.8
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
== END 2023-07-17 20:38 | DRG 817 ==
LOC: EC 17:13 → 2SICU 18:44 → 3SCARD 07-16 10:19 → 5NMEDONC 07-16 13:37 → 3SCARD 07-16 19:35
PROVIDERS: ADMIT Hospitalist; ATTEND Hospitalist
DX: T39.1X2A Poisoning by 4-Aminophenol derivatives, intentional self-harm, initial encounter (principal); E86.0 Dehydration; F32.9 Major depressive disorder, single episode, unspecified; F43.10 Post-traumatic stress disorder, unspecified; R00.1 Bradycardia, unspecified; F90.9 Attention-deficit hyperactivity disorder, unspecified type; Z59.01 Sheltered homelessness; F17.290 Nicotine dependence, other tobacco product, uncomplicated; Z88.6 Allergy status to analgesic agent; Z88.5 Allergy status to narcotic agent; Z88.8 Allergy status to other drugs, medicaments and biological substances
CPT/HCPCS: 36415; 71045; 74018; 80051; 80053; 80143; 80179; 80306; 80320; 82075; 82550; 83605; 83690; 83880; 84450; 84460; 85025; 85610; 87635; 93005; 96361; 96365; 96366; 96375; 99291

== ENCOUNTER 2023-07-17 18:02 | Inpatient (IN) | payer MEDICAID ==
[2023-07-17] MEDS ORDERED: IBUPROFEN 600 MG TAB PO PRN (19:40)
[2023-07-17] MEDS ORDERED: LORazepam 2 MG/ML INJ IM PRN (19:40)
[2023-07-17] MEDS ORDERED: MAG HYDROX/AL HYDROX/SIMETH 355 ML BOTTLE PO PRN (19:40)
[2023-07-17] MEDS ORDERED: MAGNESIUM HYDROXIDE 2,400 MG/30 ML CUP PO PRN (19:40)
[2023-07-17] MEDS ORDERED: traZODone HCL 50 MG TAB PO PRN (19:50)
[2023-07-18] MEDS: NICOTINE 14MG/24HR PATCH TRANSDERM SCH (08:27)
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
[2023-07-19] MEDS: LITHIUM CARBONATE 300 MG CAP PO SCH (21:01)
[2023-07-19] MEDS: IMIPRAMINE 25 MG TAB PO SCH (21:01)
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
[2023-07-20] MEDS: LORazepam 1 MG TAB PO PRN (08:43)
--- NOTE | 2023-07-20 20:32 | P.PN ---
Progress Note - Text Progress Note Date: 07/20/23 In-Patient Follow-up Chief Complaint: I am doing fine Subjective: The patient noted that he has been doing fine. He still feels depressed and anxious due his circumstances. The patient reported attending all the groups. He has been compliant with his medication. He reported attending all the hernandez activities. The staff noted that the patients girlfriend stated the [place] makes patient agitated. The has got two doses of Li. Discussed with patient about medications. Explained alternate medications. The patient seems agreeable. He is going to give me the names of the medications he has taken in the past. On previous occasion, the patient did not remember any medications and avoided answering the question. Discussed ID work rehab program and adult education. Patient seemed very interested in ID work rehab program after discharge. Leading questions: The patient admitted to Depression and Anxiety. Denied SI or HI. Denied symptoms consistent with psychosis Sleep and Appetite: fair. Interim History: Behavioral Changes: None. PRN meds/isolation/restraints/ change in status: None. Change in medical condition: No change. Change in medications: No change. Side effects from Medications: None. Objective- MSE: Alert and attentive. Orientation times three. Dressed and Groomed: Appropriately. Pleasant and cooperative. Psychomotor Activity: Normal. Speech: Normal in tone, quality, and quantity. Mood: depressed and Anxious. Affect: consistent with mood. SI or HI: None. Perceptual disturbance: None. Thought Content: No paranoia or other delusional thinking noted. Thought Process: Normal. Cognition: Intact Judgment and Insight: Good AIMS: Normal. Labs: No new labs Diagnosis: No change Plan and recommendation: Continue current Medications. Monitor MS and side effects of medications and adjust medications accordingly. Provide supportive psychotherapy. The patient provided psychoeducation. The patient provided Substance abuse counseling. The patient to continue attending the hernandez activities Medication Consent with explanation of risk/benefits and side effects: Explained and obtained.
--- NOTE | 2023-07-21 16:20 | P.PN ---
Progress Note - Text Progress Note Date: 07/21/23 In-Patient Follow-up Chief Complaint: I am doing fine Subjective: The patient noted that he has been doing fine. He still feels depressed and anxious due to his circumstances. The patient reported attending all the groups. He has been compliant with his medication. He reported attending all the hernandez activities. Explained alternate medications. The patient seems agreeable. The was unable to obtain his medical information from his girlfriend. He has a folder at home. The patient will be started on Zoloft 25 mg daily. Leading questions: The patient admitted to Depression and Anxiety. Denied SI or HI. Denied symptoms consistent with psychosis Sleep and Appetite: fair Interim History: Behavioral Changes: None. PRN meds/isolation/restraints/ change in status: None. Change in medical condition: No change. Change in medications: No change. Side effects from Medications: None. Objective- MSE: Alert and attentive. Orientation times three. Dressed and Groomed: Appropriately. Pleasant and cooperative. Psychomotor Activity: Normal. Speech: Normal in tone, quality, and quantity. Mood: depressed and Anxious. Affect: consistent with mood. SI or HI: None. Perceptual disturbance: None. Thought Content: No paranoia or other delusional thinking noted. Thought Process: Normal. Cognition: Intact Judgment and Insight: Good AIMS: Normal. Labs: No new labs Diagnosis: No change Plan and recommendation: Monitor MS and side effects of medications and adjust medications accordingly. Provide supportive psychotherapy. The patient provided psychoeducation. The patient provided Substance abuse counseling. The patient to continue attending the hernandez activities Medication Consent with explanation of risk/benefits and side effects: Explained and obtained.
[2023-07-22] MEDS: SERTRALINE 25 MG TAB PO SCH (08:35)
--- NOTE | 2023-07-22 12:36 | P.PN ---
Subjective Progress Note Date: 07/22/23 Patient Name: Jason Gan Date of : [birth year] Patient Status: Inpatient Attending Provider: Rene Snell Date: 07/22/23 Initialization Date: 07/21/23 16:17 In-Patient Follow-up Chief Complaint: I am doing fine Subjective: The patient noted that he has been doing fine. He still feels depressed and anxious due to his circumstances. The patient reported attending all the groups. He has been compliant with his medication. He reported attending all the hernandez activities. 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 Denied SI or HI. Denied symptoms consistent with psychosis Sleep and Appetite: fair Interim History: Behavioral Changes: None. PRN meds/isolation/restraints/ change in status: None. Change in medical condition: No change. Change in medications: No change. Side effects from Medications: None. Objective- MSE: Alert and attentive. Orientation times three. Dressed and Groomed: Appropriately. Pleasant and cooperative. Psychomotor Activity: Normal. Speech: Normal in tone, quality, and quantity. Mood: depressed and Anxious. Affect: consistent with mood. SI or HI: None. Perceptual disturbance: None. Thought Content: No paranoia or other delusional thinking noted. Thought Process: Normal. Cognition: Intact Judgment and Insight: Good AIMS: Normal. Labs: No new labs Diagnosis: adjustment disorder with mixed emotional features major depressive disorder unspecified Cannabis use disorder unspecified Plan and recommendation: Monitor MS and side effects of medications and adjust medications accordingly. Provide supportive psychotherapy. The patient provided psychoeducation. The patient provided Substance abuse counseling. The patient to continue attending the hernandez activities Medication Consent with explanation of risk/benefits and side effects: Explained and obtained. Tee Lozoya M.D. Objective - Vital Signs Vital signs: Vital Signs Temp 97.7 F 07/22/23 06:15 Pulse 51 L 07/22/23 06:15 Resp 18 07/22/23 06:15 BP 107/57 07/22/23 06:15 Pulse Ox 100 07/22/23 06:15 FiO2
--- NOTE | 2023-07-23 10:55 | P.PN ---
Subjective Progress Note Date: 07/23/23 Patient Name: Jason Gan Date of : [birth year] Patient Status: Inpatient Attending Provider: Rene Snell Date: 07/23/23 Initialization Date: 07/21/23 16:17 In-Patient Follow-up Chief Complaint: I am waiting to be discharged and I am doing okay Subjective: The patient noted that he has been doing fine. He still feels depressed and anxious due to his circumstances. The patient reported attending all the groups. He has been compliant with his medication. He reported attending all the hernandez activities. 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 Denied SI or HI. Denied symptoms consistent with psychosis Sleep and Appetite: fair Interim History: Behavioral Changes: None. PRN meds/isolation/restraints/ change in status: None. Change in medical condition: No change. Change in medications: No change. Side effects from Medications: None. Objective- MSE: Alert and attentive. Orientation times three. Dressed and Groomed: Appropriately. Pleasant and cooperative. Psychomotor Activity: Normal. Speech: Normal in tone, quality, and quantity. Mood: depressed and Anxious. Affect: consistent with mood. SI or HI: None. Perceptual disturbance: None. Thought Content: No paranoia or other delusional thinking noted. Thought Process: Normal. Cognition: Intact Judgment and Insight: Good AIMS: Normal. Labs: No new labs Diagnosis: adjustment disorder with mixed emotional features major depressive disorder unspecified Cannabis use disorder unspecified Plan and recommendation: Monitor MS and side effects of medications and adjust medications accordingly. Provide supportive psychotherapy. The patient provided psychoeducation. The patient provided Substance abuse counseling. The patient to continue attending the hernandez activities Medication Consent with explanation of risk/benefits and side effects: Explained and obtained. creative services manager will look into this current option to go and stay with one of the patient's residence and if that is viable Tee Lozoya M.D. Objective - Vital Signs Vital signs: Vital Signs Temp 98.5 F 07/23/23 06:00 Pulse 65 07/23/23 06:00 Resp 17 07/23/23 06:00 BP 103/58 07/23/23 06:00 Pulse Ox 98 07/23/23 06:00 FiO2 Intake & Output 07/22/23 07/23/23 07/23/23 18:59 06:59 18:59 Weight 80.6 kg
[2023-07-24] MEDS: LITHIUM CARBONATE 150 MG CAP PO SCH (09:47)
--- NOTE | 2023-07-24 21:26 | P.PN ---
Progress Note - Text Progress Note Date: 07/24/23 In-Patient Follow-up Chief Complaint: I am doing fine Subjective: The patient noted that he has been doing fine. He reported no side effects of medications. The patient reported attending all the groups. He has been compliant with his medication. He reported attending all the hernandez activities. The patient [place] level is low. He is informed of low blood level, The dose increased to Li 450mg in the morning and 300mg in the evening. The patient is consented. Overall, the patient doing fine and is stable. The patient to be discharged after obtaining the blood level tomorrow. Leading questions: The patient admitted to Anxiety. Denied Depression. Denied SI or HI. Denied symptoms consistent with psychosis Sleep and Appetite: fair Interim History: Behavioral Changes: None. PRN meds/isolation/restraints/ change in status: None. Change in medical condition: No change. Change in medications: No change. Side effects from Medications: None. Objective- MSE: Alert and attentive. Orientation times three. Dressed and Groomed: Appropriately. Pleasant and cooperative. Psychomotor Activity: Normal. Speech: Normal in tone, quality, and quantity. Mood: Anxious. Affect: consistent with mood. SI or HI: None. Perceptual disturbance: None. Thought Content: No paranoia or other delusional thinking noted. Thought Process: Normal. Cognition: Intact Judgment and Insight: Good AIMS: Normal. Labs: No new labs Diagnosis: No change Plan and recommendation: Monitor MS and side effects of medications and adjust medications accordingly. Provide supportive psychotherapy. The patient provided psychoeducation. The patient provided Substance abuse counseling. The patient to continue attending the hernandez activities Medication Consent with explanation of risk/benefits and side effects: Explained and obtained.
[2023-07-25 06:30] VITALS: BP 104/57; PULSE 114; RESP 16; TEMP 98.2
--- NOTE | 2023-07-25 16:18 | P.DS ---
Providers Date of admission: 07/17/23 19:56 Expected date of discharge: 07/25/23 Attending physician: Rene Snell MD Consults: 07/17/23 19:40 Consult Physician Routine Consulting Provider: Harmeet Dunne Consult Reason/Comments: H&P and medical Do you want consulting provider notified?: Yes Primary care physician: Stated None - Discharge Diagnosis(es) (1) Major depressive disorder, recurrent severe without psychotic features Status: Acute Priority: High (2) Post traumatic stress disorder (PTSD) Status: Acute Priority: Medium (3) Cluster B personality disorder Status: Acute Priority: Medium Patient Condition at Discharge: Stable Plan - Discharge Summary Discharge Rx Participant: Yes New Discharge Prescriptions: New Imipramine [Tofranil] 50 mg PO HS 15 Days #15 tab Sertraline [Zoloft] 25 mg PO DAILY 15 Days #15 tab traZODone HCL [Desyrel] 50 mg PO HS PRN 15 Days #15 tab PRN Reason: Insomnia Roy Carbonate 300 mg PO BID 15 Days #15 cap Continue Cetirizine HCl [Zyrtec] 10 mg PO DIRECTED Imipramine HCl [Tofranil] 50 mg PO DIRECTED Discontinued cloZAPine [Clozaril] 25 mg PO DIRECTED guanFACINE HCL [Intuniv] 2 mg PO DIRECTED Roy Carbonate [Roy Carbonate ER] 300 mg PO DIRECTED Discharge Medication List Cetirizine HCl [Zyrtec] 10 mg PO DIRECTED 07/18/23 [History] Imipramine HCl [Tofranil] 50 mg PO DIRECTED 07/18/23 [History] Imipramine [Tofranil] 50 mg PO HS 15 Days #15 tab 07/25/23 [Rx] [place] Carbonate 300 mg PO BID 15 Days #15 cap 07/25/23 [Rx] Sertraline [Zoloft] 25 mg PO DAILY 15 Days #15 tab 07/25/23 [Rx] traZODone HCL [Desyrel] 50 mg PO HS PRN 15 Days #15 tab 07/25/23 [Rx] Follow up Appointment(s)/Referral(s): [facility] [Outside] - 08/03/23 1:30 pm ( 08-03-23 at 1:30 with Timothy Boles at [place] office. Viktoria Hernandez to transport from main office to [place]. ) [facility] [Outside] - 07/26/23 1:00 pm (07-26-23 at 1:00 with Viktoria Hernandez at [facility] ) Patient Instructions/Handouts: Depression (DC) Activity/Diet/Wound Care/Special Instructions: Avoid the use of street drugs and alcohol. Take all medications as prescribed. When you are in need of refills on your medications, please contact your medical provider and/or outpatient psychiatrist/provider to have this done. Please go to your scheduled outpatient appointment for aftercare treatment. If symptoms return or become worse, call the crisis line at and/or go to the nearest emergency room for evaluation. National Suicide Hotline 988 Discharge Disposition: OTHER INSTITUTION NOT DEFINED
== END 2023-07-25 11:30 | disposition home or self-care (01) | DRG 751 ==
LOC: 3MHU 19:56
PROVIDERS: ADMIT Psychiatry & Neurology Psychiatry; ATTEND Psychiatry & Neurology Psychiatry
DX: F33.2 Major depressive disorder, recurrent severe without psychotic features (principal); F12.10 Cannabis abuse, uncomplicated; F70 Mild intellectual disabilities; F60.89 Other specific personality disorders; F43.10 Post-traumatic stress disorder, unspecified; F90.9 Attention-deficit hyperactivity disorder, unspecified type; T39.1X2D Poisoning by 4-Aminophenol derivatives, intentional self-harm, subsequent encounter; T39.012D Poisoning by aspirin, intentional self-harm, subsequent encounter; T36 Poisoning by, adverse effect of and underdosing of systemic antibiotics; F17.290 Nicotine dependence, other tobacco product, uncomplicated; Z71.6 Tobacco abuse counseling; Z79.899 Other long term (current) drug therapy; Z59.01 Sheltered homelessness; Z59.41 Food insecurity; Z59.82 Transportation insecurity; Z59.12 Inadequate housing utilities; Z56.0 Unemployment, unspecified; Z71.41 Alcohol abuse counseling and surveillance of alcoholic; Z71.51 Drug abuse counseling and surveillance of drug abuser; Z55.5 Less than a high school diploma; Z62.819 Personal history of unspecified abuse in childhood; Z88.6 Allergy status to analgesic agent; Z88.5 Allergy status to narcotic agent; Z88.8 Allergy status to other drugs, medicaments and biological substances
CPT/HCPCS: 80178; 84439; 84443; 84481

== ENCOUNTER 2024-01-28 22:18 | Emergency (ER) | payer OTHER ==
[2024-01-28 22:22] VITALS: TEMP 97.8
[2024-01-28 22:59] LABS: Amphetamine Screen,Urine Not Detected (NotDetected); Barbiturate Screen,Urine Not Detected (NotDetected); Benzodiazepines Screen,Urine Not Detected (NotDetected); Cocaine Screen,Urine Not Detected (NotDetected); Methadone Screen, Urine Not Detected (NotDetected); Opiate Screen,Urine Not Detected (NotDetected); Oxycodone Screen, Urine Not Detected (NotDetected); Phencyclidine Screen,Urine Not Detected (NotDetected); Tricyclic Antidepressant,Urine Not Detected (NotDetected); Urn Cannabinoid Scrn Not Detected (NotDetected)
--- NOTE | 2024-01-29 00:12 | ED ---
Psych HPI - General Chief Complaint: Psychiatric Symptoms Stated Complaint: Mental health petition Time Seen by Provider: 01/28/24 22:31 Source: patient, RN notes reviewed Mode of arrival: ambulatory - History of Present Illness Initial Comments: This is a 18-year-old male presents emergency department with a petition for mental health evaluation. 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 Police arrived to the scene and brought patient to the emergency department for evaluation. Currently patient states he does not have suicidal ideation however would be okay if he did pass away. He denies homicidal ideation. Denies auditory visual hallucinations. Denies previous medical history. - Related Data Home Medications Medication Instructions Recorded Confirmed Cetirizine HCl [Zyrtec] 10 mg PO DIRECTED 07/18/23 07/18/23 Imipramine HCl [Tofranil] 50 mg PO DIRECTED 07/18/23 07/18/23 Previous Rx's Medication Instructions Recorded Imipramine [Tofranil] 50 mg PO HS 15 Days #15 tab 07/25/23 [place] Carbonate 300 mg PO BID 15 Days #15 cap 07/25/23 Sertraline [Zoloft] 25 mg PO DAILY 15 Days #15 tab 07/25/23 traZODone HCL [Desyrel] 50 mg PO HS PRN 15 Days #15 tab 07/25/23 Allergies Allergy/AdvReac Type Severity Reaction Status Date / Time acetaminophen [From Tylenol] AdvReac He becomes Verified 01/28/24 22:22 irritable & overly hyper, mean, and hurts himself amphetamine [From Adderall] AdvReac Irritable, Verified 01/28/24 22:22 overly hyper, mean, and hurts himself. codeine AdvReac Nausea & Verified 01/28/24 22:22 [From Tylenol-Codeine #3] Vomiting dextroamphetamine AdvReac Irritable, Verified 01/28/24 22:22 [From Adderall] overly hyper, mean, and hurts himself. dextromethorphan AdvReac He becomes Verified 01/28/24 22:22 [From Tylenol Cold Head irritable Congestion] & overly hyper, mean, and hurts himself diphenhydramine AdvReac He becomes Verified 01/28/24 22:22 [From Benadryl] irritable & overly hyper, mean, and hurts himself guaifenesin AdvReac He becomes Verified 01/28/24 22:22 [From Tylenol Cold Head irritable Congestion] & overly hyper, mean, and hurts himself lisdexamfetamine AdvReac rage Verified 01/28/24 22:22 [From Vyvanse] methylphenidate AdvReac Irritable, Verified 01/28/24 22:22 [From Concerta] overly hyper, mean, and hurts himself. olanzapine [From Zyprexa] AdvReac anger/irrit Verified 01/28/24 22:22 ability phenylephrine AdvReac He becomes Verified 01/28/24 22:22 [From Tylenol Cold Head irritable Congestion] & overly hyper, mean, and hurts himself risperidone AdvReac rage Verified 01/28/24 22:22 any otc cold treatment AdvReac He becomes Uncoded 01/28/24 22:22 irritable & overly hyper, mean, and hurts himself Review of Systems ROS Statement: Those systems with pertinent positive or pertinent negative responses have been documented in the HPI. ROS Other: All systems not noted in ROS Statement are negative. Past Medical History Additional Past Medical History / Comment(s): depression History of Any Multi-Drug Resistant Organisms: None Reported Past Surgical History: Orthopedic Surgery Additional Past Surgical History / Comment(s): Bilateral ankle fractures Past Anesthesia/Blood Transfusion Reactions: No Reported Reaction Past Psychological History: Depression Smoking Status: Vaper Past Alcohol Use History: None Reported Past Drug Use History: Marijuana - Past Family History Mother Family Medical History: Unable to Obtain General Exam Limitations: no limitations General appearance: alert, in no apparent distress Eye exam: Present: normal appearance, PERRL, EOMI. Absent: scleral icterus, conjunctival injection, periorbital swelling Neck exam: Present: normal inspection. Absent: tenderness, meningismus, lymphadenopathy Respiratory exam: Present: normal lung sounds bilaterally. Absent: respiratory distress, wheezes, rales, rhonchi, stridor Cardiovascular Exam: Present: regular rate, normal rhythm, normal heart sounds. Absent: systolic murmur, diastolic murmur, rubs, gallop, clicks GI/Abdominal exam: Present: soft, normal bowel sounds. Absent: distended, tenderness, guarding, rebound, rigid Extremities exam: Present: normal inspection, full ROM, normal capillary refill. Absent: tenderness, pedal edema, joint swelling, calf tenderness Back exam: Present: normal inspection Psychiatric exam: Present: depressed, flat affect, suicidal ideation. Absent: normal affect, normal mood Course Vital Signs 01/28/24 22:20 Temperature 97.8 F Pulse Rate 92 Respiratory 18 Rate Blood Pressure 112/68 O2 Sat by Pulse 99 Oximetry Medical Decision Making - Medical Decision Making Was pt. sent in by a medical professional or institution (, PA, REAL ESTATE INVESTOR, urgent care, hospital, or snf...) When possible be specific @ -No Did you speak to anyone other than the patient for history (EMS, parent, family, police, friend...)? What history was obtained from this source @ -No Did you review nursing and triage notes (agree or disagree)? Why? @ -I reviewed and agree with nursing and triage notes Were old charts reviewed (outside hosp., previous admission, EMS record, old EKG, old radiological studies, urgent care reports/EKG's, snf records)? Report findings @ -No old charts were reviewed Differential Diagnosis (chest pain, altered mental status, abdominal pain women, abdominal pain men, vaginal bleeding, weakness, fever, dyspnea, syncope, headache, dizziness, GI bleed, back pain, seizure, CVA, palpatations, mental health, musculoskeletal)? @ -Differential Mental Health Depression, anxiety, bipolar, psychosis, schizophrenia, borderline personality, situational depression, adjustment disorder, behavioral disorder, brain tumor, malingering, substance abuse, encephalopathy, medication reaction, dementia, hypothyroidism, degenerative neurologic disorder, lupus.... This is not meant to be all-inclusive list EKG interpreted by me (3pts min.). @ -None X-rays interpreted by me (1pt min.). @ -None done CT interpreted by me (1pt min.). @ -None done U/S interpreted by me (1pt. min.). @ -None done What testing was considered but not performed or refused? (CT, X-rays, U/S, labs)? Why? @ -None What meds were considered but not given or refused? Why? @ -None Did you discuss the management of the patient with other professionals (professionals i.e. DrRajesh, PA, REAL ESTATE INVESTOR, lab, RT, psych nurse, psychiatric social worker supervisor, foundation digger, teacher, budget officer, manager case management)? Give summary @ -No Was smoking cessation discussed for >3mins.? @ -No Was critical care preformed (if so, how long)? @ -No Were there social determinants of health that impacted care today? How? (Homelessness, low income, unemployed, alcoholism, drug addiction, transportation, low edu. Level, literacy, decrease access to med. care, fdc, rehab)? @ -No Was there de-escalation of care discussed even if they declined (Discuss DNR or withdrawal of care, Hospice)? DNR status @ -No What co-morbidities impacted this encounter? (DM, HTN, Smoking, COPD, CAD, Cancer, CVA, ARF, Chemo, Hep., AIDS, mental health diagnosis, sleep apnea, morbid obesity)? @ -None Was patient admitted / discharged? Hospital course, mention meds given and route, prescriptions, significant lab abnormalities, going to OR and other pertinent info. @ -discharged. 18year-old male with suicidal ideation. Noted to have flat affect and mood is depressed. Patient has been medically cleared for EPS evaluation. patient will be discharged home with safety plan in place and instructed to follow up for any new or worsening symptoms. discussed with Dr. Wallace. Undiagnosed new problem with uncertain prognosis? @ -No Drug Therapy requiring intensive monitoring for toxicity (Heparin, Nitro, Insulin, Cardizem)? @ -No Were any procedures done? @ -No Diagnosis/symptom? @ -suicidal ideation, depression Acute, or Chronic, or Acute on Chronic? @ -acute Uncomplicated (without systemic symptoms) or Complicated (systemic symptoms)? @ -complicated Side effects of treatment? @ -No Exacerbation, Progression, or Severe Exacerbation? @ -No Poses a threat to life or bodily function? How? (Chest pain, [place], NH, pneumonia, PE, COPD, DKA, ARF, appy, cholecystitis, CVA, Diverticulitis, Homicidal, Suicidal, threat to staff... and all critical care pts) @ -No - Lab Data Lab Results 01/28/24 01/28/24 Range/Units 22:30 22:30 Urine Opiates Screen Not Detected (NotDetected) Ur Oxycodone Screen Not Detected (NotDetected) Urine Methadone Screen Not Detected (NotDetected) Ur Barbiturates Screen Not Detected (NotDetected) U Tricyclic Antidepress Not Detected (NotDetected) Ur Phencyclidine Scrn Not Detected (NotDetected) Ur Amphetamines Screen Not Detected (NotDetected) U Methamphetamines Scrn Not Detected (NotDetected) U Benzodiazepines Scrn Not Detected (NotDetected) Urine Cocaine Screen Not Detected (NotDetected) U Marijuana (THC) Screen Not Detected (NotDetected) Influenza Type A (PCR) Not Detected (Not Detectd) Influenza Type B (PCR) Not Detected (Not Detectd) RSV (PCR) Not Detected (Not Detectd) SARS-CoV-2 (PCR) Not Detected (Not Detectd) Disposition Clinical Impression: Suicidal ideation, Depression Disposition: HOME SELF-CARE Condition: Stable Instructions (If sedation given, give patient instructions): Help Prevent Suicide (ED), Suicide Prevention (ED) Additional Instructions: Please return to the Emergency Department if symptoms worsen or any other concerns. Is patient prescribed a controlled substance at d/c from ED?: No Referrals: Navid Swann MD [Primary Care Provider] - 1-2 days Time of Disposition: 01:41
[2024-01-29 02:23] VITALS: BP 134/74; PULSE 77; RESP 20
== END 2024-01-29 01:44 | disposition home or self-care (01) ==
LOC: EC 22:18
DX: R45.851 Suicidal ideations (principal); F32.A Depression, unspecified; F17.290 Nicotine dependence, other tobacco product, uncomplicated; Z11.52 Encounter for screening for COVID-19; Z88.6 Allergy status to analgesic agent; Z88.5 Allergy status to narcotic agent; Z88.8 Allergy status to other drugs, medicaments and biological substances
CPT/HCPCS: 80306; 82075; 87636; 99285

== ENCOUNTER 2024-06-21 23:02 | Emergency (ER) | payer OTHER ==
[2024-06-21] MEDS: IBUPROFEN 800 MG TAB PO STA (23:24)
--- NOTE | 2024-06-21 23:58 | ED ---
General Adult HPI - General Chief complaint: Extremity Injury, Lower Stated complaint: L foot ankle injury Time Seen by Provider: 06/21/24 23:10 Source: patient, RN notes reviewed, old records reviewed Mode of arrival: ambulatory Limitations: no limitations - History of Present Illness Initial comments: Patient is a 19-year-old male who presents emergency department complaining of left ankle pain. Sometime earlier this evening, he was playing basketball when he landed on it wrong and severely inverted the left ankle. Currently complaining of pain in the lower foot, bilateral sides of the ankle, as well as tib-fib. Denies any sensory deficits. States it hurts. Presents for further evaluation. No significant past medical history. Denies any other injuries from the fall including hitting his head and loss of consciousness. Is not on blood thinners. - Related Data Home Medications Medication Instructions Recorded Confirmed Cetirizine HCl [Zyrtec] 10 mg PO DIRECTED 07/18/23 07/18/23 Imipramine HCl [Tofranil] 50 mg PO DIRECTED 07/18/23 07/18/23 Previous Rx's Medication Instructions Recorded Imipramine [Tofranil] 50 mg PO HS 15 Days #15 tab 07/25/23 [place] Carbonate 300 mg PO BID 15 Days #15 cap 07/25/23 Sertraline [Zoloft] 25 mg PO DAILY 15 Days #15 tab 07/25/23 traZODone HCL [Desyrel] 50 mg PO HS PRN 15 Days #15 tab 07/25/23 Allergies Allergy/AdvReac Type Severity Reaction Status Date / Time acetaminophen [From Tylenol] AdvReac He becomes Verified 06/21/24 23:08 irritable & overly hyper, mean, and hurts himself amphetamine [From Adderall] AdvReac Irritable, Verified 06/21/24 23:08 overly hyper, mean, and hurts himself. codeine AdvReac Nausea & Verified 06/21/24 23:08 [From Tylenol-Codeine #3] Vomiting dextroamphetamine AdvReac Irritable, Verified 06/21/24 23:08 [From Adderall] overly hyper, mean, and hurts himself. dextromethorphan AdvReac He becomes Verified 06/21/24 23:08 [From Tylenol Cold Head irritable Congestion] & overly hyper, mean, and hurts himself diphenhydramine AdvReac He becomes Verified 06/21/24 23:08 [From Benadryl] irritable & overly hyper, mean, and hurts himself guaifenesin AdvReac He becomes Verified 06/21/24 23:08 [From Tylenol Cold Head irritable Congestion] & overly hyper, mean, and hurts himself lisdexamfetamine AdvReac rage Verified 06/21/24 23:08 [From Vyvanse] methylphenidate AdvReac Irritable, Verified 06/21/24 23:08 [From Concerta] overly hyper, mean, and hurts himself. olanzapine [From Zyprexa] AdvReac anger/irrit Verified 06/21/24 23:08 ability phenylephrine AdvReac He becomes Verified 06/21/24 23:08 [From Tylenol Cold Head irritable Congestion] & overly hyper, mean, and hurts himself risperidone AdvReac rage Verified 06/21/24 23:08 any otc cold treatment AdvReac He becomes Uncoded 06/21/24 23:08 irritable & overly hyper, mean, and hurts himself Review of Systems ROS Statement: Those systems with pertinent positive or pertinent negative responses have been documented in the HPI. Review of Systems: CONST: Denies fever EYES: Denies blurry vision ENT: Denies nasal congestion C/V: Denies Chest pain RESP: Denies shortness of breath GI: Denies abdominal pain : Denies dysuria SKIN: Denies rash. MSK: Endorses left ankle pain NEURO: Denies headache ROS Other: All systems not noted in ROS Statement are negative. Past Medical History Additional Past Medical History / Comment(s): depression History of Any Multi-Drug Resistant Organisms: None Reported Past Surgical History: Orthopedic Surgery Additional Past Surgical History / Comment(s): Bilateral ankle fractures Past Anesthesia/Blood Transfusion Reactions: No Reported Reaction Past Psychological History: Depression Smoking Status: Vaper Past Alcohol Use History: Occasional Past Drug Use History: Marijuana - Past Family History Mother Family Medical History: Unable to Obtain General Exam - General Exam Comments Initial Comments: General: Appears in no acute distress. HEAD: Normal with no signs of head trauma. EYES: EOMI. ENT: Hearing grossly intact. RESPIRATORY: No respiratory distress. C/V: Regular rate and rhythm. ABD: Abdomen is nondistended. EXT: Significant generalized left ankle edema and swelling with both medial and lateral malleoli are tenderness to palpation and some mild anterior tibial tenderness to palpation approximately 3 to 4 inches above the ankle. Patient also has some mild midfoot tenderness to palpation. On the left side. No other obvious injuries. Normal range of motion of the left knee. Neurovasc intact in the left foot. Reduced range of motion of left ankle secondary to pain. SKIN: No rashes or lesions observed on exposed skin. NEURO: Alert and oriented. Limitations: no limitations Course Vital Signs 06/21/24 23:06 Temperature 98.7 F Pulse Rate 88 Respiratory 18 Rate Blood Pressure 128/68 O2 Sat by Pulse 97 Oximetry Procedures - Orthopedic Splinting/Casting Injury #1 Side: left Lower Extremity Injury Location: short leg Lower Extremity Immobilizer: posterior splint, stirrup splint Other Orthopedic Equipment: crutches Additional Comments: Neurovasc intact following splinting. Medical Decision Making - Medical Decision Making Was pt. sent in by a medical professional or institution (, PA, GLOBAL ANALYTICS HEAD, urgent care, hospital, or assisted...) When possible be specific @ -No Did you speak to anyone other than the patient for history (EMS, parent, family, police, friend...)? What history was obtained from this source @ -No Did you review nursing and triage notes (agree or disagree)? Why? @ -I reviewed and agree with nursing and triage notes Were old charts reviewed (outside hosp., previous admission, EMS record, old EKG, old radiological studies, urgent care reports/EKG's, assisted records)? Report findings @ -No old charts were reviewed Differential Diagnosis (chest pain, altered mental status, abdominal pain women, abdominal pain men, vaginal bleeding, weakness, fever, dyspnea, syncope, headache, dizziness, GI bleed, back pain, seizure, CVA, palpatations, mental health, musculoskeletal)? @ -Left ankle sprain, left foot sprain, left ankle fracture. This list is not all inclusive. EKG interpreted by me (3pts min.). @ -None done X-rays interpreted by me (1pt min.). @ -X-rays of the left leg remarkable for left distal fibular avulsion fracture. CT interpreted by me (1pt min.). @ -None done U/S interpreted by me (1pt. min.). @ -None done What testing was considered but not performed or refused? (CT, X-rays, U/S, labs)? Why? @ -None What meds were considered but not given or refused? Why? @ -None Did you discuss the management of the patient with other professionals (professionals i.e. , PA, GLO[employer] ANALYTICS HEAD, lab, RT, psych nurse, social services, water carter, teacher, house officer, casework manager)? Give summary @ -No Was smoking cessation discussed for >3mins.? @ -No Was critical care preformed (if so, how long)? @ -No Were there social determinants of health that impacted care today? How? (Homelessness, low income, unemployed, alcoholism, drug addiction, transportation, low edu. Level, literacy, decrease access to med. care, group home, rehab)? @ -No Was there de-escalation of care discussed even if they declined (Discuss DNR or withdrawal of care, Hospice)? DNR status @ -No What co-morbidities impacted this encounter? (DM, HTN, Smoking, COPD, CAD, Cancer, CVA, ARF, Chemo, Hep., AIDS, mental health diagnosis, sleep apnea, morbid obesity)? @ -None Was patient admitted / discharged? Hospital course, mention meds given and route, prescriptions, significant lab abnormalities, going to OR and other pertinent info. @ -Patient presents to the emergency department complaining of left ankle injury. Patient significantly rolled his left ankle a few hours prior to arrival. Neurovascularly intact. No other obvious injury. We will obtain x- rays of the left foot and leg. Patient will be given ibuprofen as well as ice pack. He was in agreement this plan. Vital signs within except limits. X-rays reveal left distal fibular avulsion fracture. After the patient. Patient was splinted by myself. He tolerated the procedure well and had intact neurovascular exam following splinting. He will be given a set of crutches. I did offer to send him home with Tylenol threes however he states he will use [id number] analgesia medications. He will be given follow-up with orthopedic surgery for next week and strict return precautions were discussed. I instructed the patient to follow up with their PCP in the next 1-3 days. I provided contact information for follow up with orthopedics. I explained that the patient should return to the emergency department if they experience any worsening symptoms. Strict return precautions were discussed with the patient. The patient expressed understanding of these instructions. I answered all questions that the patient had. The patient was discharged home in good condition with their prescriptions and follow up information. Undiagnosed new problem with uncertain prognosis? @ -No Drug Therapy requiring intensive monitoring for toxicity (Heparin, Nitro, Insulin, Cardizem)? @ -No Were any procedures done? @ -Splinting Diagnosis/symptom? @ -Left distal fibula fracture. Acute, or Chronic, or Acute on Chronic? @ -Acute Uncomplicated (without systemic symptoms) or Complicated (systemic symptoms)? @ -Uncomplicated Side effects of treatment? @ -None Exacerbation, Progression, or Severe Exacerbation] @ -No Poses a threat to life or bodily function? @ -Unlikely at this time Disposition Clinical Impression: Left fibular fracture Disposition: HOME SELF-CARE Condition: Good Instructions (If sedation given, give patient instructions): Ankle Fracture (ED) Additional Instructions: You have a left fibula fracture, which is a bone in your ankle. You need to follow-up with orthopedic surgery. Contact information provided. Use [id number] analgesia medications as needed for pain control. Remain nonweightbearing on the left foot until you follow-up with orthopedics. Use crutches for ambulation. Return to the ER for any worsening symptoms. Is patient prescribed a controlled substance at d/c from ED?: No Referrals: None,Stated [Primary Care Provider] - 1-2 days Rodrigo Barraza MD [Medical Doctor] - 1-2 days Forms: Area PCPs
--- NOTE | 2024-06-22 00:47 | XR ---
EXAM: XR Left Foot Complete, 3 or More Views CLINICAL HISTORY: ITS.REASON XR Reason: fall, pain TECHNIQUE: Frontal, lateral and oblique views of the left foot. COMPARISON: No relevant prior studies available. FINDINGS: Bones/joints: Unremarkable. No acute fracture. No dislocation. Soft tissues: Unremarkable. No radiopaque foreign body. IMPRESSION: No acute fracture.
--- NOTE | 2024-06-22 00:48 | XR ---
EXAM: XR Left Tibia and Fibula, 2 Views CLINICAL HISTORY: ITS.REASON XR Reason: fall, pain TECHNIQUE: Frontal and lateral views of the left tibia and fibula. COMPARISON: No relevant prior studies available. FINDINGS: Bones/joints: ATFL avulsion fracture of the distal tip of the fibula, with bone fragment measuring 3 x 2 mm. No dislocation. Soft tissues: Severe lateral soft tissue swelling. No radiopaque foreign body. IMPRESSION: 1. ATFL avulsion fracture of the distal tip of the fibula, with bone fragment measuring 3 x 2 mm. 2. Severe lateral soft tissue swelling.
[2024-06-22 02:02] VITALS: BP 127/79; PULSE 111; RESP 22; TEMP 98.1
== END 2024-06-22 02:12 | disposition home or self-care (01) ==
LOC: EC 23:02
DX: S82.402A Unspecified fracture of shaft of left fibula, initial encounter for closed fracture (principal); F17.290 Nicotine dependence, other tobacco product, uncomplicated; Z88.6 Allergy status to analgesic agent; Z88.8 Allergy status to other drugs, medicaments and biological substances; Z88.5 Allergy status to narcotic agent; X50.1XXA Overexertion from prolonged static or awkward postures, initial encounter; Y93.67 Activity, basketball
CPT/HCPCS: 29515; 99283